=== PATIENT | female | born 1990 | race Caucasian/White ===

== ENCOUNTER 2017-09-16 15:17 | Outpatient (CLI) | payer BC, MEDICAID ==
[2017-09-16 16:59] VITALS: BP 116/63
[2017-09-16] MEDS ORDERED: LACTATED RINGERS 500 ML IV ONE (17:23)
== END 2017-09-16 17:15 | disposition left against medical advice (07) ==
LOC: TRG 15:17
PROVIDERS: ATTEND Obstetrics & Gynecology
DX: O47.03 False labor before 37 completed weeks of gestation, third trimester (principal); Z3A.29 29 weeks gestation of pregnancy
CPT/HCPCS: 59025

== ENCOUNTER 2017-10-06 17:58 | Outpatient (CLI) | payer BC, MEDICAID ==
[2017-10-06 19:27] VITALS: BP 116/71
[2017-10-06] MEDS ORDERED: LACTATED RINGERS 500 ML IV ONE (20:00)
[2017-10-06] MEDS ORDERED: LACTATED RINGERS 1,000 ML IV ONE (20:01)
[2017-10-06 20:36] LABS: Mucus,Urine FEW /HPF
[2017-10-06 20:43] LABS: Bilirubin,Urine NEG (Negative); Blood,Urine SM (Negative); Ketones,Urine TR mg/dL (Negative); Leukocyte Esterase,Urine TR (Negative); Nitrite,Urine NEG (Negative); Protein,Urine <15 mg/dL mg/dL (Negative); Urobilinogen,Urine < 2.0 mg/dL (<2.0)
== END 2017-10-06 22:00 | disposition home or self-care (01) ==
LOC: TRG 17:58
PROVIDERS: ATTEND Obstetrics & Gynecology
DX: Z34.93 Encounter for supervision of normal pregnancy, unspecified, third trimester (principal); Z3A.32 32 weeks gestation of pregnancy
CPT/HCPCS: 59025; 81001; 96360; J7120

== ENCOUNTER 2017-11-07 11:02 | Inpatient (IN) | payer BC, MEDICAID ==
[2017-11-07] MEDS ORDERED: LACTATED RINGERS 2,000 ML ONE (11:30)
--- NOTE | 2017-11-07 11:36 | History and Physical Report ---
History of Present Illness Date of examination: 11/07/17 Date of admission: 11/07/2017 Chief complaint: contractions History of present illness: Pt presents in active labor but confirmed not to be vertex by sonogram and by my exam. parts were palpated on exam and pt appears to be breech but oblique lie. Past History Past Medical History: no pertinent history Past Surgical History: no surgical history Social history: no significant social history, single - Obstetrical History Expected Date of Delivery: 11/26/17 Actual Gestation: 37 Week(s) 2 Day(s) : 3 Para: 2 Number of Living Children: 2 Medications and Allergies Allergies Allergy/AdvReac Type Severity Reaction Status Date / Time No Known Allergies Allergy Verified 10/06/17 19:59 Review of Systems All systems: negative - Vital Signs Vital signs: Vital Signs Temp Pulse Resp Pulse Ox 99.0 F 106 H 20 95 11/07/17 11:25 11/07/17 11:25 11/07/17 11:25 11/07/17 11:25 Temp Pulse Resp BP Pulse Ox 99.0 F 106 H 20 95 11/07/17 11:25 11/07/17 11:25 11/07/17 11:25 11/07/17 11:25 - Physical Exam Cardiovascular: Normal S1, Normal S2 Lungs: Positive: Clear to auscultation, Normal air movement Abdomen: Positive: normal appearance, soft. Negative: distention, tenderness, guarding Genitourinary (Female): Positive: normal external genitalia, normal perenium - Obstetrical Cervical Dilatation: 6.5 Cervical Effacement Percentage: 90 station: -2 Uterine Contraction Pattern: Regular Uterine Tone Measurement Phase: Resting Uterine Contraction Intensity: Moderate Results All other labs normal. Assessment and Plan - Patient Problems (1) Unstable lie Current Visit: Yes Status: Acute Plan to address problem: -to OR for primary c/s -all risk/benefits and alternatives have be d/w pt and questions were addressed and answered. (2) 37 weeks gestation of Current Visit: Yes Status: Acute (3) Active labor Current Visit: Yes Status: Acute
[2017-11-07] MEDS ORDERED: BICITRA ONE (11:38)
[2017-11-07] MEDS ORDERED: BICITRA PO ONE (11:38)
[2017-11-07] MEDS ORDERED: PEPCID IV ONE ×2 (11:38→11:39)
[2017-11-07] MEDS ORDERED: ANCEF/STERILE WATER 2 GM/20 ML 2 GM/20 ML SYRINGE IV ONE (11:39)
[2017-11-07] MEDS ORDERED: REGLAN ONE (11:39)
[2017-11-07] MEDS ORDERED: XYLOCAINE MPF 2% ONE (11:41)
--- NOTE | 2017-11-07 11:46 | Anesthesia Consultation ---
Anesthesia Consult and Med Hx Date of service: 11/07/17 - Airway Anesthetic Teeth Evaluation: Good ROM Head & Neck: Adequate Mental/Hyoid Distance: Adequate Mallampati Class: Class II Intubation Access Assessment: Probably Good - Pre-Operative Health Status ASA Pre-Surgery Classification: ASA2 Proposed Anesthetic Plan: Spinal - Pulmonary Hx Asthma: No - Cardiovascular System Hx Hypertension: No - Central Nervous System Hx Seizures: No Hx Psychiatric Problems: No - Endocrine Hx Renal Disease: No Hx Hypothyroidism: No Hx Hyperthyroidism: No - Hematic Hx Anemia: No Hx Sickle Cell Disease: No - Other Systems Hx Alcohol Use: No
[2017-11-07] MEDS ORDERED: ZOFRAN IV PRN (11:47)
[2017-11-07] MEDS ORDERED: NARCAN 0.4 MG/1 ML IV PRN ×2 (11:47→13:33)
[2017-11-07] MEDS ORDERED: PHENERGAN PR PRN (11:47)
[2017-11-07] MEDS ORDERED: PHENERGAN PO PRN (11:47)
--- NOTE | 2017-11-07 11:47 | Anesthesia Day of Surgery ---
Anesthesia Day of Surgery - Day of Surgery Patient Examined: Yes Patient H&P Reviewed: Yes Patient is NPO: Yes
[2017-11-07] MEDS ORDERED: MORPHINE ONE (11:56)
[2017-11-07 12:00] LABS: Basophils % (Auto) 0.3 % (0.0-1.8); Eosinophils % (Auto) 0.3 % (0.0-4.3); Hemoglobin 12.7 gm/dl (10.1-14.3); Mean Corpuscular HGB Conc 32 % (30-34); Mean Corpuscular Volume 78 fl (79-97); Platelet Count 218 K/mm3 (140-440); Red Blood Count 5.11 M/mm3 (3.65-5.03); Red Cell Distribution Width 16.8 % (13.2-15.2); White Blood Count 15.3 K/mm3 (4.5-11.0)
[2017-11-07] MEDS ORDERED: TORADOL IV PRN (12:00)
[2017-11-07] MEDS ORDERED: PITOCin/NS 20 UNIT/1000ML DRIP 20 UNITS/1,000 ML BAG IV SCH (12:00)
[2017-11-07] MEDS ORDERED: WATER FOR IRRIG STERILE IR ONE (12:00)
[2017-11-07] MEDS ORDERED: SODIUM CHLORIDE FLUSH SYRINGE 10 ML IV SCH (12:00)
[2017-11-07] MEDS ORDERED: MORPHINE IV PRN (12:00)
[2017-11-07] MEDS ORDERED: ANCEF/STERILE WATER 2 GM/20 ML 2 GM/20 ML SYRINGE IV NR (12:00)
[2017-11-07] MEDS ORDERED: LACTATED RINGERS 1,000 ML IV SCH (12:00)
[2017-11-07] MEDS ORDERED: NACL 0.9% IR ONE (12:00)
[2017-11-07 12:05] LABS: Mean Corpuscular Hemoglobin 25 pg (28-32)
[2017-11-07] MEDS ORDERED: NEO SYNEPHRINE/NS Syringe(OR USE) IV ONE (12:48)
[2017-11-07] MEDS ORDERED: DILAUDID ONE (13:01)
[2017-11-07] MEDS ORDERED: NACL 0.9% 1000 ML 1,000 ML ONE (13:09)
[2017-11-07] MEDS ORDERED: LANSINOH TP PRN (13:33)
[2017-11-07] MEDS ORDERED: TUCKS PAD TP PRN (13:33)
[2017-11-07] MEDS ORDERED: D5LR 1,000 ML IV SCH (14:00)
[2017-11-07] MEDS ORDERED: ANCEF/NS 1 GM/50 ML 1 GM/50 ML BAG IV SCH (14:00)
[2017-11-07] MEDS ORDERED: TORADOL ONE (15:12)
--- NOTE | 2017-11-07 16:50 | Operative Report ---
Operative Report Operative Report: Date of procedure: 11/07/2017 Pre-operative diagnosis: 37 weeks gestation Blake breech presentation Active labor Post-operative diagnosis: Same Procedure name(s): Primary low transverse section via Pfannenstiel skin incision Surgeon: Dr. Carreon Menagerie Caretaker: CAILIN Anesthesia: Spinal EBL: 900 mL Urine output: 100 mL of clear urine out at the end of the procedure Fluids: 1600 mL Findings: Live born female infant weight 7 lbs. 8 oz. Apgars of 8 and 9 at one and 5 minutes Grossly normal fallopian tubes and ovaries bilaterally Blake breech presentation Indications: Patient presented to triage complaining of contractions and was noted to be in active labor approximately 7-8 cm dilated. Upon exam it was determined that patient did not have vertex presentation and this was confirmed by bedside sonogram. Patient was taken to the operating room for section at this time. All risks benefits and alternatives were discussed with the patient. Consents were signed and placed on the chart. Procedure: Patient was taking to the operating room. Patient was then prepped and draped in sterile fashion after anesthesia was found to be adequate. A low transverse skin incision was made with the scalpel and carried down to the underlying layer of fascia with the Bovie. The fascia was then incised in the midline and this incision was extended bilaterally with the Bovie. The superior aspect of the fascia was grasped with Cordelia clamps tented upward and dissected off of the anterior rectus muscles with the scalpel. In similar fashion the inferior aspect of the fascia was grasped with Cordelia clamps tented upward and dissected off of the anterior rectus muscles. The rectus muscles were then bluntly divided in the midline. The peritoneum was identified and entered into sharply. The bladder blade was placed. The bladder flap was created using the Metzenbaum scissors. The bladder blade was replaced. A lower transverse uterine incision was made with the scalpel and extended bilaterally with the blunt dissection. Artificial rupture of membranes was performed yielding clear amniotic fluid. The transverse incision uterus was extended superiorly creating a T in the incision in order to allow delivery of the head. The 's head was then delivered atraumatically. was noted to be in blake breech presentation. The buttocks was delivered followed by both legs bilaterally. The 's torso and shoulders were then delivered. The infant's head was delivered then delivered. The umbilical cord was clamped x2. The cord was cut. The was then placed in sterile bassinet. The cord blood was collected. The placenta was manually extracted in its entirety. The uterus was exteriorized and cleared of all clots and debris. The uterine incision was closed using 0 Vicryl in a running locking fashion. A second imbricating layer of the same suture was then created. The posterior cul-de-sac was copiously irrigated. The uterus was returned to the abdomen. The gutters were also irrigated. The Damir retractor was removed area The anterior rectus muscles were reapproximated using 3-0 Vicryl. The anterior rectus fascia was reapproximated using 0 Vicryl in a running fashion. The subcuticular fat was reapproximated using 2-0 Vicryl in a running fashion. The skin was reapproximated with 4-0 Monocryl in a subcuticular stitch. The patient tolerated the procedure well. Sponge lap and needle counts were all correct x3. Patient was taken to the recovery room awake and in stable condition.
[2017-11-07] MEDS: ceFAZolin 1 GM in NACL 0.9% 20 ML IV SCH (21:26)
[2017-11-08] MEDS: NORCO 5/325 PO PRN ×5 (00:10→22:46)
[2017-11-08] MEDS: MOTRIN PO PRN ×4 (00:11→22:47)
[2017-11-08 00:36] LABS: Hematocrit 33.3 % (30.3-42.9); Hemoglobin 10.9 gm/dl (10.1-14.3)
[2017-11-08] MEDS: BENADRYL IV PRN ×2 (05:22→16:35)
[2017-11-08] MEDS: ceFAZolin 1 GM in NACL 0.9% 20 ML IV SCH (05:23)
[2017-11-08] MEDS ORDERED: BOOSTRIX IM ONE (06:00)
--- NOTE | 2017-11-08 07:50 | Progress Note ---
Assessment and Plan patient doing well, no complaints this morning. Praveen ennis, VSSAF, H&H 10.9/ 33.3. Continue postop pathway. Encouraged advancing activity and diet as tolerated. - Patient Problems (1) delivery delivered Current Visit: Yes Status: Acute Subjective - Subjective Date of service: 11/08/17 Principal diagnosis: postop day #1 s/p primary c/s Patient reports: appetite normal, voiding normally, pain well controlled, ambulating normally, no dizzy ambulation, no flatus, no nauseated [place]: doing well, bottle feeding Objective - Vital Signs Latest vital signs: Vital Signs Temp Pulse Resp BP BP Pulse Ox 11/08/17 03:30 95 H 11/08/17 01:30 112 H 11/08/17 00:00 98.2 F 121 H 20 112/61 11/07/17 20:20 99.0 F 98 H 20 112/66 11/07/17 14:10 82 18 135/85 99 11/07/17 14:05 97.5 F L 87 16 137/89 99 11/07/17 14:00 82 16 140/84 99 11/07/17 13:55 98 H 16 136/84 99 11/07/17 13:50 77 20 124/86 98 11/07/17 13:45 81 20 145/83 98 11/07/17 13:40 82 18 134/88 98 11/07/17 13:35 79 18 143/83 98 11/07/17 13:20 97.1 F L 91 H 10 L 125/82 99 11/07/17 11:25 99.0 F 106 H 20 95 Intake and Output 11/07/17 11/07/17 11/08/17 15:59 23:59 07:59 Intake Total 2150 120 360 Output Total 075 798 2207 Balance 1950 -180 -740 Intake: IV 2150 Oral 120 360 Output: Urine 425 157 7917 Indwelling Catheter 300 600 Void 0 500 Other: Total, Intake Amount 120 120 Total, Output Amount 300 500 Voiding Method Indwelling Catheter # Voids Void 1 Weight 87.997 kg Estimated Blood Loss 900 - Exam Breasts: Present: normal Cardiovascular: Present: Regular rate Lungs: Present: Clear to auscultation, Normal air movement Abdomen: Present: normal appearance, soft Vulva: both: normal Uterus: Present: normal, firm, fundal height at umbilicus Extremities: Present: normal Deep Tendon Reflex Grade: Normal +2 Incision: Present: normal, dry (evidence of bleeding on left side of incision but no active bleeding), intact - Labs Labs: Abnormal lab results 11/07/17 Range/Units 11:50 WBC 15.3 H (4.5-11.0) K/mm3 RBC 5.11 H (3.65-5.03) M/mm3 MCV 78 L (79-97) fl MCH 25 L (28-32) pg RDW 16.8 H (13.2-15.2) % [place] % (Auto) 8.7 H (0.0-7.3) % [place] # 1.3 H (0.0-0.8) K/mm3 Seg Neutrophils % 76.5 H (40.0-70.0) % Seg Neutrophils # 11.7 H (1.8-7.7) K/mm3
--- NOTE | 2017-11-08 09:59 | Progress Note ---
Subjective Date of service: 11/08/17 Principal diagnosis: postop day #1 s/p primary c/s Interval history: 1st POD after Patient is in the bed, comfortable. Pain is well controlled with pain meds. Ambulated well. No residual neurological deficit. Pruritus is mostly under control. No anesthesia complications. Objective - Constitutional Vitals: Vital Signs - 12hr 11/08/17 11/08/17 11/08/17 00:00 01:30 03:30 Temperature 98.2 F Pulse Rate 121 H 112 H 95 H Respiratory 20 Rate Blood Pressure 112/61 [Right] O2 Sat by Pulse Oximetry 11/08/17 07:34 Temperature 98.4 F Pulse Rate 106 H Respiratory 16 Rate Blood Pressure 107/60 [Right] O2 Sat by Pulse 98 Oximetry - Labs CBC & Chem 7: 11/08/17 00:22 Labs: Abnormal lab results 11/07/17 Range/Units 11:50 WBC 15.3 H (4.5-11.0) K/mm3 RBC 5.11 H (3.65-5.03) M/mm3 MCV 78 L (79-97) fl MCH 25 L (28-32) pg RDW 16.8 H (13.2-15.2) % [place] % (Auto) 8.7 H (0.0-7.3) % [place] # 1.3 H (0.0-0.8) K/mm3 Seg Neutrophils % 76.5 H (40.0-70.0) % Seg Neutrophils # 11.7 H (1.8-7.7) K/mm3
[2017-11-08] MEDS ORDERED: MILK OF MAGNESIA PO PRN (12:22)
[2017-11-09] MEDS: NORCO 5/325 PO PRN ×2 (03:52→11:18)
--- NOTE | 2017-11-09 06:33 | Discharge Summary ---
Providers - Providers Date of Admission: 11/07/17 11:36 Date of discharge: 11/09/17 (pt agrees with d/c) Attending physician: RICK SAMUEL Primary care physician: RICK SAMUEL Hospitalization Reason for admission: active labor, other (Breech presentation) Delivery: Procedure: primary low transverse Episiotomy: none Laceration: none Incision: normal, dry, intact Other procedures: none complications: none Discharge diagnosis: IUP at term delivered baby: female Hospital course: Uncomplicated primary section Breech presentation Pt A&O X 3 No c/o voiced VSS FF below umb Lochia scant Incision D&I H&H stable Pt asymptomatic anemia. Doing well s/p section P: d/c today with instructions RTO 1 week postop care. RX provided Condition at discharge: Good Disposition: DC-01 TO HOME OR SELFCARE - Discharge Diagnoses (1) delivery delivered Status: Acute Comment: RTO 1 week for postop care Plan - Discharge Medications Prescriptions: Ibuprofen 800 mg PO Q6HR #30 tablet oxyCODONE /ACETAMINOPHEN [Percocet 5/325] 1 tab PO Q4HR #30 tab - Provider Discharge Summary Activity: routine, no sex for 6 weeks, no heavy lifting 4 weeks, no strenuous exercise Diet: routine Instructions: routine Additional instructions: [] Smoking cessation referral if applicable(refer to patient education folder for contact #) [] Refer to [facility] Booklet Call your doctor immediately for: * Fever > 100.5 * Heavy vaginal bleeding ( >1 pad per hour) * Severe persistent headache * Shortness of breath * Reddened, hot, painful area to leg or breast * Drainage or odor from incision. * Keep incision clean and dry at all times and follow doctor's instructions regarding bathing/showering - Follow up plan Follow up: RICK SAMUEL MD [Primary Care Provider] - 7 Days (Congratulations! Please call [phone] to schedule your postoperative visit in 1 week. Take medications as prescribed. Call with any concerns.)
[2017-11-09] MEDS: MOTRIN PO PRN (10:17)
[2017-11-09] MEDS ORDERED: M-M-R II VACCINE SUB-Q ONE (13:08)
[2017-11-09 13:53] VITALS: BP 128/78
== END 2017-11-09 14:45 | disposition home or self-care (01) | DRG 766 ==
LOC: TRG 11:02 → APU 11:36 → OB 15:12
PROVIDERS: ADMIT Obstetrics & Gynecology; ATTEND Obstetrics & Gynecology
PROC: 10D00Z1 Extraction of Products of Conception, Low, Open Approach (ICD-10-PCS; principal; 2017-11-07)
PROC: 3E0234Z Introduction of Serum, Toxoid and Vaccine into Muscle, Percutaneous Approach (ICD-10-PCS; 2017-11-08)
DX: O32.1XX0 Maternal care for breech presentation, not applicable or unspecified (principal); Z3A.37 37 weeks gestation of pregnancy; Z37.0 Single live birth; Z23 Encounter for immunization; O99.02 Anemia complicating childbirth; D64.9 Anemia, unspecified
CPT/HCPCS: 36415; 85014; 85018; 85025; 86850; 86900; 86901; 90707; J0690; J1170; J1200; J1885; J2270; J2370; J2590; J2765; J7030; J7120